=== PATIENT | male | born 1955 | race Caucasian/White ===

== ENCOUNTER 2022-03-07 09:20 | Outpatient (CLI) | payer MEDICARE, SELFPAY ==
--- NOTE | ~2022-03-07 | US_ITS ---
EXAMINATION: US aorta [facility] scrn DATE: 03/07/2022 10:23 INDICATION: Personal history of nicotine dependence TECHNIQUE: Grayscale, color Doppler, and pulsed Doppler images of the aorta and common iliac arteries were obtained. COMPARISON: None. FINDINGS: Maximum vascular dimensions are as follows: Proximal aorta: 2.8 cm Mid aorta: 3.1 cm Distal aorta: 3.8 cm Right common iliac artery: 1.6 cm Left common iliac artery: 1.4 cm There is fusiform aneurysm of the distal abdominal aorta which measures 3.7 x 3.2 cm IMPRESSION: 1. Fusiform infrarenal abdominal aortic aneurysm. Reviewed, dictated and finalized at location A.
== END 2022-03-07 09:21 | disposition home or self-care (01) ==
PROVIDERS: PCP Family Medicine; Visit Provider Physician Assistant
DX: Z13.6 Encounter for screening for cardiovascular disorders (principal); I71.4 Abdominal aortic aneurysm, without rupture; Z87.891 Personal history of nicotine dependence
CPT/HCPCS: 76706

== ENCOUNTER 2024-03-24 09:41 | Outpatient (CLI) | payer MEDICARE, SELFPAY ==
--- NOTE | ~2024-03-24 | US_ITS ---
EXAMINATION: US aorta DATE: 03/24/2024 10:40 INDICATION: FU AAA . TECHNIQUE: Grayscale and Doppler ultrasound images of the abdominal aorta were obtained. COMPARISON: 03/07/2022 FINDINGS: Fusiform dilation of the infrarenal abdominal aorta, measuring 3.7 cm AP x 3.5 cm trans x 5 .5cm CC. Maximum transverse dimension of the proximal abdominal aorta 2.9 cm. Maximum transverse dime nsion of the mid abdominal aorta 2.4 cm. Maximum transverse dimension of the distal abdominal aorta 3 .7 cm. Right proximal common iliac artery diameter 1.9 cm. Left proximal common iliac artery diameter 1.8 cm. IMPRESSION: Fusiform infrarenal abdominal aortic aneurysm measuring up to 3.7 cm. Recommend follow-up ultrasound aorta in 2 years. Bilateral proximal common iliac artery ectasia. Reviewed, dictated and finalized at location K.
== END 2024-03-24 09:42 | disposition home or self-care (01) ==
PROVIDERS: PCP Family Medicine; Visit Provider Family Medicine
DX: I71.43 Infrarenal abdominal aortic aneurysm, without rupture (principal)
CPT/HCPCS: 76775